=== PATIENT | male | born 1985 | race Hispanic/Latino ===

== ENCOUNTER 2020-03-24 03:28 | Emergency (ER) | payer OTHER ==
--- NOTE | 2020-03-24 04:12 | Emergency Department Report ---
Suture/Staple Removal - [facility] Chief Complaint: Laceration/Recheck/Suture Stated Complaint: SUTURE REMOVAL Time Seen by Provider: 03/24/20 04:03 When Sutures or Valeria Placed: 11-14 Days Ago Wound Location: Left forearm seen in the [facility] secondary to laceratio ED Review of Systems ROS: Stated complaint: SUTURE REMOVAL Other details as noted in HPI Comment: All other systems reviewed and negative ED Past Medical Hx - Past Medical History Previous Medical History?: No - Surgical History Past Surgical History?: No - Social History Smoking Status: Current Every Day Smoker Substance Use Type: None - Medications Home Medications: Home Medications Medication Instructions Recorded Confirmed Last Taken Type Chlorhexidine Gluconate [Hibiclens] 10 ml TP BID #240 liquid 03/24/20 Unknown Rx cephALEXin [Keflex] 500 mg PO Q6HR #40 capsule 03/24/20 Unknown Rx Suture Removal Exam - Exam General: Vital signs noted. No distress. Alert and acting appropriately. Wound: Yes Pathologic Erythema, Yes Tenderness, Yes Drainage, Yes Pus, Yes Wound Dehiscence Other Systems: All other systems reviewed and are unremarkable. ED Recheck MDM - Medical Decision Making 34-year-old male presents emerge department for suture removal which were removed in complete entirety. The main continue is not worse with movement initially was removed one by one the wound did have some dehiscence and purulent drainage evacuated. Wound was then washed scope with copious fluids irrigated and a medicated dressing was placed. Placed patient on oral antibiotics with oral antibiotic microbial was to be discharged home with and with advised follow-up in 2 days for wound reevaluation Critical care attestation.: If time is entered above; I have spent that time in minutes in the direct care of this critically ill patient, excluding procedure time. ED Disposition Clinical Impression: Wound infection following procedure Disposition: DC-01 TO HOME OR SELFCARE Is pt being admited?: No Does the pt Need Aspirin: No Condition: Stable Instructions: Wound Infection (ED), Methicillin Resistant Staphylococcus Aureus (ED), Acute Wound Care (ED) Additional Instructions: She will have the wound reevaluated in 2 days Prescriptions: Chlorhexidine Gluconate [Hibiclens] 10 ml TP BID #240 liquid cephALEXin [Keflex] 500 mg PO Q6HR #40 capsule Referrals: PRIMARY CARE, [Referring] - 2-3 Days ED Upper Ext Inj EXAM - Physical Exam General Appearance: no apparent distress Elbow/Forearm Exam: soft tissue tenderness (Erythema surrounding the laceration site with yellowish pus drainage which is worse with expression. Some wound dehiscence is is noted the continuous stitch is seen. Appears to be 3-0 Ethilon), swelling Hand Exam: normal inspection
== END 2020-03-24 04:12 | disposition home or self-care (01) ==
LOC: ED 03:28
DX: T81.49XA Infection following a procedure, other surgical site, initial encounter (principal); F17.200 Nicotine dependence, unspecified, uncomplicated; Z79.899 Other long term (current) drug therapy; Y83.8 Other surgical procedures as the cause of abnormal reaction of the patient, or of later complication, without mention of misadventure at the time of the procedure; Y92.89 Other specified places as the place of occurrence of the external cause
CPT/HCPCS: 99282

== ENCOUNTER 2020-06-02 11:50 | Emergency (ER) | payer OTHER ==
[2020-06-02] MEDS ORDERED: FAMOTIDINE 20 MG/2 ML INJ IV ONE ×2 (11:56→12:07)
[2020-06-02] MEDS ORDERED: EPINEPHrine/PF 1 MG/1 ML INJ ONE (11:56)
[2020-06-02] MEDS ORDERED: methylPREDNISolone Sod Succinate 125 MG/2 ML INJ ONE (11:56)
[2020-06-02] MEDS ORDERED: diphenhydrAMINE 50 MG/ML VIAL ONE (11:57)
[2020-06-02] MEDS ORDERED: methylPREDNISolone Sod Succinate 125 MG/2 ML INJ IV ONE (12:07)
[2020-06-02] MEDS ORDERED: EPINEPHrine/PF 1 MG/1 ML INJ SUB-Q ONE ×2 (12:08→12:39)
--- NOTE | 2020-06-02 12:47 | Emergency Department Report ---
ED Allergic Reaction HPI - General Stated complaint: INSECT STING Time Seen by Provider: 06/02/20 12:07 Source: patient - History of Present Illness Initial Comments: 35-year-old male presents to ED with complaint of allergic reaction. Patient states he was stung directly on the tongue by yellowjacket. Patient states yellowjacket flew out of his soda can. Patient states this occurred at approximately 10 AM. Patient took 4 Benadryl tablets at 10:30 AM. Patient reports his tongue has been progressively swelling last 2 hours. Patient denies sensation of throat closing. Denies any difficulty swallowing secretions. MD Complaint: allergic reaction -: hour(s) (2) Exposure: insect bite Severity: severe Treatment Prior to Arrival: benadryl - Related Data Previous Rx's Medication Instructions Recorded Last Taken Type Chlorhexidine Gluconate [Hibiclens] 10 ml TP BID #240 liquid 03/24/20 Unknown Rx cephALEXin [Keflex] 500 mg PO Q6HR #40 capsule 03/24/20 Unknown Rx EPINEPHrine [Epipen] 0.3 mg IJ ONCE PRN #1 auto.injct 06/02/20 Unknown Rx predniSONE [Deltasone] 50 mg PO QDAY #5 tab 06/02/20 Unknown Rx Allergies Allergy/AdvReac Type Severity Reaction Status Date / Time No Known Allergies Allergy Unverified 03/24/20 03:42 ED Review of Systems ROS: Stated complaint: INSECT STING Other details as noted in HPI Comment: All other systems reviewed and negative ENT: other (Reports tongue swelling) Respiratory: denies: shortness of breath Gastrointestinal: denies: abdominal pain, nausea, vomiting Skin: denies: rash ED Past Medical Hx - Social History Smoking Status: Current Every Day Smoker Substance Use Type: None - Medications Home Medications: Home Medications Medication Instructions Recorded Confirmed Last Taken Type Chlorhexidine Gluconate [Hibiclens] 10 ml TP BID #240 liquid 03/24/20 Unknown Rx cephALEXin [Keflex] 500 mg PO Q6HR #40 capsule 03/24/20 Unknown Rx EPINEPHrine [Epipen] 0.3 mg IJ ONCE PRN #1 auto.injct 06/02/20 Unknown Rx predniSONE [Deltasone] 50 mg PO QDAY #5 tab 06/02/20 Unknown Rx ED Physical Exam - General General appearance: alert, in no apparent distress - Head Head exam: Present: atraumatic, normocephalic - Eye Eye exam: Present: normal appearance, EOMI - ENT ENT exam: Present: other (Severe swelling to with moderate edema to floor of mouth, below tongue; uvula midline, no edema) - Neck Neck exam: Present: normal inspection - Respiratory Respiratory exam: Present: normal lung sounds bilaterally. Absent: respiratory distress, wheezes, stridor - Cardiovascular Cardiovascular Exam: Present: regular rate, normal rhythm - GI/Abdominal GI/Abdominal exam: Present: soft. Absent: distended, tenderness - Extremities Exam Extremities exam: Present: normal inspection - Neurological Exam Neurological exam: Present: alert, oriented X3 - Psychiatric Psychiatric exam: Present: normal affect, normal mood - Skin Skin exam: Present: warm, dry, intact, normal color. Absent: rash ED Course Vital Signs 06/02/20 06/02/20 06/02/20 12:16 12:30 13:15 Pulse Rate 86 87 87 Respiratory 18 17 22 Rate Blood Pressure 127/74 Blood Pressure [Left] O2 Sat by Pulse 100 99 100 Oximetry 06/02/20 13:40 Pulse Rate 89 Respiratory 18 Rate Blood Pressure Blood Pressure 113/64 [Left] O2 Sat by Pulse 100 Oximetry - Reevaluation(s) Reevaluation #1: 06/02/20 12:10 On arrival, spoke with patient regarding need for prophylactic intubation. Patient does not agree to it at this time. 06/02/20 12:15 Patient moved into resuscitation room in preparation for possible prophylactic intubation. He has already been given Solu-Medrol, SQ epinephrine, and Pepcid. Tongue appears unchanged. Patient still not agreeable to intubation. Anesthesia called. 06/02/20 12:25 tONGUE Appears unchanged. Patient states he feels as if his swelling has decreased some. Another SQ dose of epi given. 06/02/20 12:35 Dr. Lamar, anesthesiologist at bedside to speak with patient regarding prophylactic intubation. Patient states he feels as if his tongue swelling is improving. Risk and benefit of intubation versus observation discussed with the patient and Dr. Lamar, including the need for crash cricothyroidotomy if needed. Patient understands. He is still refusing intubation at this time. 06/02/20 12:58 Pt currently on his laptop. Swelling appears somewhat improved. Pt states it feels much better and that he is ready to go. I explained that he will here in the ED for observation for a few hours. 06/02/20 13:32 Patient states he needs to leave. States he has to pickle maker his daughter. States no one else available to do so. Patient still has significant swelling to his tongue, although somewhat improved. Spoke with patient for a significant amount of time. He understands the risks of leaving, including airway obstruction and . Patient is competent and understands. Patient states he will leave AMA. Will give prescription for prednisone and EpiPen. Patient advised to return to ED immediately symptoms worsen. AMA form signed. ED Medical Decision Making - Medical Decision Making 35-year-old male presents to ED with angioedema of the tongue after being stung yellowjacket on his tongue. Patient with significant edema to his tongue and floor of mouth. Patient refused prophylactic intubation after speaking with me and also the anesthesiologist. Patient reported taking 4 Benadryl tabs prior to ED arrival. Here in the ED he was given Solu-Medrol, Pepcid, subcu epi x2. Patient reports improvement of his swelling. On exam there may be some decrease in size of tongue, however there is still some significant swelling present. Patient decided to leave AMA. AMA form signed. I gave him a prescription for prednisone and EpiPen prior to discharge. Return precautions given. - Differential Diagnosis Angioedema Critical Care Time: Yes Critical care time in (mins) excluding proc time.: 35 Critical care attestation.: If time is entered above; I have spent that time in minutes in the direct care of this critically ill patient, excluding procedure time. Critical Care Time: 35 min ED Disposition Clinical Impression: Angioedema, Allergic angioedema Disposition: LEFT AGAINST MED ADVICE Is pt being admited?: No Condition: Stable Instructions: Anaphylaxis (ED), Angioedema (ED) Prescriptions: predniSONE [Deltasone] 50 mg PO QDAY #5 tab EPINEPHrine [Epipen] 0.3 mg IJ ONCE PRN #1 auto.injct PRN Reason: Angioedema Referrals: [facility] [Provider Group] - 3-5 Days Forms: AMA Form Time of Disposition: 13:35
[2020-06-02 14:10] VITALS: BP 113/64
--- NOTE | 2020-06-02 15:19 | Event Note ---
Date: 06/02/20 (ED Consult) 1235: Consulted by ED MD for patient presenting with tongue swelling 2/2 yellow jacket sting on tongue. On arrival to ED, patient was noted to be in no acute distress, normal WOB, with SpO2 100% and other vitals signs normal. Patient was awake, alert, talking, and handling secretions well. Pronunciation of words was affected but voiced sounded clear and not hoarse. On exam there was significant diffuse swelling of the tongue and soft tissues inferior to the tongue, which took up about 1/2 to 2/3rds of the patient's oral cavity. The uvula and oropharynx were normal in appearance and the trachea was midline with normal neck ROM. Per ED MD report, the patient had received multiple doses of epinephrine IM and solumedrol IV. I explained to the patient my concern for possible impending airway compromise and the option of elective intubation while he was stable and the situation was controlled and non-emergent. The patient stated that he felt the swelling had improved and he declined intubation. Myself and the ED MD again explained the risks of observation vs elective intubation including the potential need for surgical airway and possibility of if swelling worsened and he could not be successfully intubated. Patient verbalized understanding and again declined. I revisited the patient approximately 1hr later, at which time he was dressed and stated that he needed to leave to handle personal matters. I explained that I felt he should stay for further observation but that if he should choose to leave, he should call 911 if swelling worsened. He verbalized understanding. Per chart review, patient left AMA shortly thereafter. See ED MD documentation for additional details.
== END 2020-06-02 14:13 | disposition left against medical advice (07) ==
LOC: ED 11:50
DX: T78.3XXA Angioneurotic edema, initial encounter (principal); F17.200 Nicotine dependence, unspecified, uncomplicated; Z79.899 Other long term (current) drug therapy; W57.XXXA Bitten or stung by nonvenomous insect and other nonvenomous arthropods, initial encounter; Y93.89 Activity, other specified; Y92.89 Other specified places as the place of occurrence of the external cause; Y99.8 Other external cause status
CPT/HCPCS: 96372; 96374; 96375; 99282; J0171; J2930; J1200

== ENCOUNTER 2021-01-08 19:00 | Emergency (ER) | payer OTHER ==
[2021-01-08 19:33] VITALS: BP 109/61
== END 2021-01-09 07:00 | disposition left against medical advice (07) ==
LOC: ED 19:00
DX: S81.001A Unspecified open wound, right knee, initial encounter (principal); Z53.21 Procedure and treatment not carried out due to patient leaving prior to being seen by health care provider; X58.XXXA Exposure to other specified factors, initial encounter; Y93.89 Activity, other specified; Y92.89 Other specified places as the place of occurrence of the external cause; Y99.8 Other external cause status